=== PATIENT | female | born 1960 | race Caucasian/White ===

== ENCOUNTER → 2022-10-14 | Outpatient (CLI) | payer BC, OTHER ==
[2022-10-14 12:59] LABS: ALBUMIN 4.3 G/DL (3.2-5.2); BILIRUBIN,DIRECT 0.2 MG/DL (<0.4); BILIRUBIN,TOTAL 0.6 MG/DL (0.3-1.2); TOTAL PROTEIN 6.9 G/DL (5.7-8.2)
== END ==
LOC: M LAB 11:41
PROVIDERS: ATTEND Otolaryngology
DX: R07.0 Pain in throat (principal)

== ENCOUNTER → 2022-10-27 | Outpatient (CLI) | payer BC, OTHER ==
[~2022-10-27] MED LIST: ALBU8.5H; ALPR0.5T3; DICL75TA; ETAN50SY; FLUC100T3; HYDR200T3; PANT40TA29; SYMB16INH; URO-1CAP
== END ==
LOC: M LABSMTC 10:58
PROVIDERS: ATTEND Anesthesiology
DX: Z01.812 Encounter for preprocedural laboratory examination (principal); Z20.822 Contact with and (suspected) exposure to COVID-19

== ENCOUNTER → 2022-11-24 | Outpatient (CLI) | payer BC, OTHER ==
[~2022-11-24] MED LIST changes: +CLOT10TR PO
== END ==
LOC: M CARPUL 13:27
PROVIDERS: ATTEND Nurse Practitioner Family
DX: R06.02 Shortness of breath (principal)

== ENCOUNTER → 2022-12-01 | Outpatient (CLI) | payer BC, OTHER ==
[~2022-12-01] MED LIST changes: +METHACHOLINE KIT INH ONE
== END ==
LOC: M CARPUL 10:23
PROVIDERS: ATTEND Nurse Practitioner Family
DX: R06.02 Shortness of breath (principal)
CPT/HCPCS: 94070; J7674

== ENCOUNTER → 2022-12-06 | Outpatient (CLI) | payer BC, OTHER ==
[~2022-12-06] MED LIST changes: -METHACHOLINE KIT INH ONE
== END ==
LOC: M LABSMTC 10:47
PROVIDERS: ATTEND Anesthesiology
DX: Z01.812 Encounter for preprocedural laboratory examination (principal); Z11.52 Encounter for screening for COVID-19

== ENCOUNTER 2022-12-10 09:51 | Day surgery (SDC) | payer BC, OTHER ==
[~2022-12-10] VITALS: Ht 167.6 cm; Wt 60.7 kg
[~2022-12-10 09:51] MED LIST changes: +NS 1,000 ML IV ONE
[2022-12-10] MEDS ORDERED: LIDOCAINE 2% 100MG/5ML SDV (FOR ANES.) As Ordered ONE (11:16)
[2022-12-10] MEDS ORDERED: propofoL 200 MG/20 ML VIAL As Ordered ONE (11:16)
[2022-12-10] MEDS ORDERED: fentaNYL 100 MCG/2 ML INJECTION As Ordered ONE (11:17)
[2022-12-10 11:43] VITALS: BP 111/61
== END 2022-12-10 12:05 | disposition home or self-care (01) ==
LOC: M OPP 09:51
PROVIDERS: ATTEND Internal Medicine Gastroenterology
DX: R13.10 Dysphagia, unspecified (principal); Z79.51 Long term (current) use of inhaled steroids; Z79.899 Other long term (current) drug therapy; Z88.8 Allergy status to other drugs, medicaments and biological substances; E16.2 Hypoglycemia, unspecified; M06.9 Rheumatoid arthritis, unspecified; F41.9 Anxiety disorder, unspecified; J45.909 Unspecified asthma, uncomplicated; Z86.16 Personal history of COVID-19; Z86.19 Personal history of other infectious and parasitic diseases; Z87.891 Personal history of nicotine dependence

== ENCOUNTER → 2023-01-05 | Outpatient (REF) | payer BC, OTHER ==
[~2023-01-05] MED LIST changes: -NS 1,000 ML IV ONE
== END ==
LOC: M LAB REF 17:20
PROVIDERS: ATTEND Otolaryngology
DX: R07.0 Pain in throat (principal)

== ENCOUNTER → 2024-02-15 | Outpatient (REF) | payer OTHER ==
[~2024-02-15] MED LIST changes: -HYDR200T3; +HYDR200T46
== END ==
LOC: M SFHCPLAZ 13:15
PROVIDERS: ATTEND Internal Medicine Infectious Disease
DX: Z86.19 Personal history of other infectious and parasitic diseases (principal)